=== PATIENT | female | born 1945 | race Caucasian/White ===

== ENCOUNTER 2019-02-20 09:50 | Emergency (ER) | payer OTHER, MEDICARE ==
[2019-02-20] MEDS ORDERED: MAG HYDROX/AL HYDROX/SIMETH 30 ML UNIT-DOSE CUP PO ONE (10:13)
[2019-02-20] MEDS ORDERED: ONDANSETRON 4 MG/2 ML VIAL IVPB ONE (10:13)
[2019-02-20] MEDS ORDERED: FAMOTIDINE 20 MG/50 ML IVPB 20 MG/50 ML MG IVPB ONE ×2 (10:14→10:16)
[2019-02-20] MEDS ORDERED: MAG HYDROX/AL HYDROX/SIMETH 30 ML UNIT-DOSE CUP ONE (10:16)
[2019-02-20] MEDS ORDERED: ONDANSETRON 4 MG/2 ML VIAL ONE (10:16)
--- NOTE | 2019-02-20 10:22 | PDOC ---
History of Present Illness - General Chief Complaint: Chest Pain Stated Complaint: CHEST /EPIGASTRIC PAIN Time Seen by Provider: 02/20/19 09:56 History Source: Patient, Spouse Exam Limitations: No Limitations - History of Present Illness Initial Comments: 02/20/19 10:15 CHIEF COMPLAINT:chest pain since 4 AM HISTORY OF PRESENT ILLNESS: 73 y/o female with a hx of HTN and HLD presents c/o mid sternal chest pain which awoke her at 4 am. The pain is steady, constant, aching, with no radiation. There is no back, shoulder, or neck pain. She took an antacid pill and tried to go back to sleep, slept fitfully with some ongoing pain. The pain continued this morning and then she had 3 or 4 episodes of watery diarrhea without blood. She also vomited up fluid without blood x1. She denies prior hx of heart disease and no hx of prior chest pain, GERD or gallstones. No diaphoresis, no fever, no chills, and no sick contacts. Cardiac risk factors: Positive hypertension, hyperlipidemia Negative smoking, DM, FHx REVIEW OF SYSTEMS: GENERAL/CONSTITUTIONAL: No fever or chills. No weakness. No weight change. HEAD, EYES, EARS, NOSE AND THROAT: No change in vision. No ear pain or discharge. No sore throat. CARDIOVASCULAR: Positive chest pain, no shortness of breath. RESPIRATORY: No cough, wheezing, or hemoptysis. GASTROINTESTINAL: Positive nausea, vomiting, and diarrhea. No constipation. No rectal bleeding. GENITOURINARY: No dysuria, frequency, or change in urination. MUSCULOSKELETAL: No joint or muscle swelling or pain. No neck or back pain. SKIN AND BREASTS: No rash or easy bruising. NEUROLOGIC: No headache, vertigo, loss of consciousness, or loss of sensation. PSYCHIATRIC: No depression or anxiety. ENDOCRINE: No increased thirst. No abnormal weight change. HEMATOLOGIC/LYMPHATIC: No anemia, easy bleeding, or history of blood clots. ALLERGIC/IMMUNOLOGIC: No hives or skin allergy. No latex allergy. Past History - Past Medical History Allergies/Adverse Reactions: Allergies Allergy/AdvReac Type Severity Reaction Status Date / Time Sulfa (Sulfonamide Allergy Intermediate Rash Verified 02/20/19 09:52 Antibiotics) Home Medications: Ambulatory Orders Atorvastatin Ca [Lipitor] 10 mg PO HS 09/30/13 Amlodipine Besylate 5 mg PO DAILY 02/20/19 Hydrochlorothiazide [Hctz -] 12.5 mg PO DAILY 02/20/19 COPD: No HTN: Yes Hypercholesterolemia: Yes - Suicide/Smoking/Psychosocial Hx Smoking History: Never smoked Information on smoking cessation initiated: No Hx Alcohol Use: No Drug/Substance Use Hx: No Substance Use Type: None *Physical Exam - Vital Signs Last Vital Signs Temp Pulse Resp BP Pulse Ox 88 20 145/77 100 02/20/19 09:51 02/20/19 09:51 02/20/19 09:51 02/20/19 09:51 - Physical Exam Comments: 02/20/19 10:24 GENERAL: The patient is awake, alert, and fully oriented, in no acute distress. HEAD: Normal with no signs of trauma. EYES: Pupils equal, round and reactive to light, extraocular movements intact, sclera anicteric, conjunctiva clear. ENT: Ears normal, nares patent, oropharynx clear without exudates. Moist mucous membranes. NECK: Normal range of motion, supple without lymphadenopathy, JVD, or masses. LUNGS: Breath sounds equal, clear to auscultation bilaterally. No wheezes, and no crackles. HEART: Regular rate and rhythm, normal S1 and S2 without murmur, rub or gallop. ABDOMEN: Soft, nontender, normoactive bowel sounds. No epigastric tenderness. No McBurney's. No RUQ tenderness. No guarding, no rebound. No masses. EXTREMITIES: Normal range of motion, no edema. No clubbing or cyanosis. No cords, erythema, or tenderness. Peripheral pulses nl in the feet and arms. NEUROLOGICAL: Cranial nerves II through XII grossly intact. Normal speech, normal gait. PSYCH: Normal mood, normal affect. SKIN: Warm, Dry, normal turgor, no rashes or lesions noted. Heart Score/ECG Review - ECG Impressions Comment:: 02/20/19 10:30 12 lead EKG: NSR @ 70 nl axis nl intervals no ST or T wave changes no old EKG available for comparison Impression: nl 12 lead EKG ED Treatment Course - LABORATORY CBC & Chemistry Diagram: 02/20/19 10:07 02/20/19 10:07 - RADIOLOGY Radiology Studies Ordered: Category Date Time Status CHEST X-RAY PORTABLE* [RAD] Stat Radiology 02/20/19 09:58 Ordered Medical Decision Making - Medical Decision Making 02/20/19 11:30 Patient awoke from sleep with lower sternal/xiphoid area constant pain, followed by vomiting and diarrhea. The pain has been present for 6 hours on presentation to the ED. Exam was normal. Pain resolved with maalox and nausea resolved with zofran. Labs with normal trop. 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 CXR normal. EKG normal. Patient observed in the ED and remains pain free. Assess: More likely GERD. Given nl EKG and cardiac enzymes after 6 hours with continuous chest pain, no need for second troponin. Patient advised to follow up with PMD this week and to bring the copy of the results with her to the visit. No specific meds to be prescribed at this time. Last Vital Signs Temp Pulse Resp BP Pulse Ox 66 16 112/86 100 02/20/19 11:32 02/20/19 11:32 02/20/19 11:32 02/20/19 11:32 Laboratory Results - last 24 hr 02/20/19 02/20/19 02/20/19 10:07 10:07 10:07 WBC 7.8 RBC 3.93 Hgb 12.1 Hct 36.2 MCV 92.0 MCH 30.8 MCHC 33.4 RDW 13.1 Plt Count 208 MPV 10.0 Absolute Neuts (auto) 5.4 Neutrophils % 69.5 Lymphocytes % 20.5 Monocytes % 7.8 Eosinophils % 1.4 Basophils % 0.8 PTT (Actin FS) 26.8 Sodium 135 L Potassium 4.0 Chloride 100 Carbon Dioxide 26 Anion Gap 9 BUN 21.0 H Creatinine 1.1 Est GFR (CKD-EPI)AfAm 57.28 Est GFR (CKD-EPI)NonAf 49.42 Random Glucose 121 H Calcium 9.3 Total Bilirubin 1.6 H AST 23 ALT 19 Alkaline Phosphatase 69 Troponin I Total Protein 7.0 Albumin 4.3 02/20/19 10:07 WBC RBC Hgb Hct MCV MCH MCHC RDW Plt Count MPV Absolute Neuts (auto) Neutrophils % Lymphocytes % Monocytes % Eosinophils % Basophils % PTT (Actin FS) Sodium Potassium Chloride Carbon Dioxide Anion Gap BUN Creatinine Est GFR (CKD-EPI)AfAm Est GFR (CKD-EPI)NonAf Random Glucose Calcium Total Bilirubin AST ALT Alkaline Phosphatase Troponin I < 0.03 Total Protein Albumin *DC/Admit/Observation/Transfer Diagnosis at time of Disposition: Chest pain Qualifiers: Chest pain type: unspecified Qualified Code(s): R07.9 - Chest pain, unspecified - Discharge Dispostion Disposition: HOME Condition at time of disposition: Improved Decision to Admit order: No - Referrals Referrals: [facility] [Primary Care Provider] - Call tomorrow - Patient Instructions Printed Discharge Instructions: DI for Atypical Chest Pain Additional Instructions: You were evaluated today for chest pain. The EKG and chest x-ray were normal. The cardiac enzymes were normal. The cause of the chest pain is unclear at this time, could be acid reflux. Cardiac testing in the ER was normal, but should be followed up tomorrow with a call/visit to your primary doctor to see how you are doing. Bring the copy of your EKG and results to your follow up appointment. Return to the ER immediately for any recurrent or severe symptoms. - Post Discharge Activity
[2019-02-20 10:35] VITALS: BMI 22.6
[2019-02-20 10:48] LABS: BASO % 0.8 % (0-2.0); EOS % 1.4 % (0-4.5); HEMATOCRIT 36.2 % (32.4-45.2); HEMOGLOBIN 12.1 GM/dl (10.7-15.3); LYMPH % 20.5 % (8-40); MCH 30.8 pg (25.7-33.7); MCHC 33.4 g/dl (32.0-36.0); MONO % 7.8 % (3.8-10.2); NEUT % 69.5 % (42.8-82.8); PLATELET COUNT 208 K/MM3 (134-434); RBC 3.93 M/mm3 (3.60-5.2); RDW 13.1 % (11.6-15.6); WHITE BLOOD COUNT 7.8 K/mm3 (4.0-10.8)
[2019-02-20 10:54] LABS: ALBUMIN 4.3 g/dl (3.4-5.0); BILIRUBIN,TOTAL 1.6 mg/dl (0.2-1); CALCIUM 9.3 mg/dl (8.5-10); CREATININE 1.1 mg/dl (0.55-1.3)
[2019-02-20 11:34] VITALS: BP 112/86; PULSE 66
--- NOTE | 2019-02-20 13:50 | EKG ---
Test Reason : Blood Pressure : / mmHG Vent. Rate : 070 BPM Atrial Rate : 070 BPM P-R Int : 164 ms QRS Dur : 074 ms QT Int : 414 ms P-R-T Axes : 037 026 049 degrees QTc Int : 447 ms NORMAL SINUS RHYTHM NORMAL ECG NO PREVIOUS ECGS AVAILABLE Confirmed by MD ANNA MARIE, TANYA ([id number]) on 02/20/2019 1:49:48 PM Referred By: NAOMIE COTTON Confirmed By:TANYA THRASHER MD
== END 2019-02-20 11:42 | disposition home or self-care (01) ==
LOC: FER 09:50
PROC: 3E033GC Introduction of Other Therapeutic Substance into Peripheral Vein, Percutaneous Approach (ICD-10-PCS; principal; 2019-02-20)
DX: R07.9 Chest pain, unspecified (principal)
CPT/HCPCS: 36415; 71045-TC-FY; 80053; 84484; 85025; 85730; 93005; 99284-25